=== PATIENT | male | born 1970 | race Caucasian/White ===

== ENCOUNTER 2017-01-14 13:25 | Emergency (ER) | payer MEDICAID ==
[2017-01-14 13:32] VITALS: RESP 16; TEMP 97.9; O2SAT 98
--- NOTE | 2017-01-14 13:32 | EDPHY ---
H & P HPI/ROS: CHIEF COMPLAINT: Difficulty sleeping, rectal pain. HISTORY OF PRESENT ILLNESS: The patient is a 47-year-old male who presents for difficulty sleeping and rectal pain. He has reports barely sleeping for the past 2-3 nights because of rectal pain. Hewoke up with anal pain Tuesday that has been constant since then. He has no prior history of hemorrhoids but believes that he has one now. No rectal bleeding, straining at stool, rectal intercourse. He has been using marijuana to try and help him sleep. He has not taken anything for the pain. His last BM was a couple of days ago. No diarrhea. No fever. He denies abdominal pain. REVIEW OF SYSTEMS: A ten point review of systems was performed and is negative with the exception of the items mentioned in the HPI. Source: Patient Exam Limitations: No limitations - Medical/Surgical History Hx Asthma: No Hx Chronic Respiratory Disease: Yes Hx Diabetes: No Hx Cardiac Disease: No Hx Renal Disease: No Hx Cirrhosis: No Hx Alcoholism: No Hx HIV/AIDS: No Hx Splenectomy or Spleen Trauma: No Other PMH: 1. Hernia repair. 2. PTSD - Social History Smoking Status: Current every day smoker Additional Social History: Smokes one pack of cigarettes per day, uses marijuana daily, drinks 1-2 six- packs of beer per week. - Physical Exam Exam: General Appearance: Alert. Vital signs reviewed. Eyes: Pupils equal and round, no conjunctival injection, no discharge. Anicteric. ENT, Mouth: Mucous membranes are moist, no oropharyngeal erythema or edema. Respiratory: Lungs are clear to auscultation; no wheezes, rales, or rhonchi. Coarse breath sounds on the right. Cardiovascular: Regular rate and rhythm; no murmur, rub, or gallop. Gastrointestinal: Abdomen is soft and nontender, no masses or organomegaly, bowel sounds normal. Rectal: External hemorrhoid the size of a small grape. No fissure. Likely thrombosed. Skin: Warm and dry, no rashes on exposed skin, normal color. Neurological: Alert and oriented. Moving all four extremities easily and equally. Psychiatric: Normal affect. Constitutional: Initial Vital Signs Temperature (C) 36.6 C 01/14/17 13:31 Heart Rate 75 01/14/17 13:31 Respiratory Rate 16 01/14/17 13:31 Blood Pressure 125/81 H 01/14/17 13:31 O2 Sat (%) 98 01/14/17 13:31 O2 Delivery Mode Room Air Allergies/Adverse Reactions: ibuprofen Allergy (Verified 01/14/17 13:30) Home Medications: Medication Instructions Recorded Marijuana 02/15/16 Medical Decision Making ED Course/Re-evaluation: 47-year-old male presents with rectal pain for the last two days. The pain is constant and has been keeping him awake at night. On exam he has an external thrombosed hemorrhoid. I offered to perform excision of the hemorrhoid but he declined and would like to try home and [id number] remedies first. I have instructed him to use a hemorrhoid cream with a steroid, tucks pads, stool softeners, fluids, and Sitz baths. He understands to return if he is not improving. Differential Diagnosis: Differential diagnoses that I considered include but are not limited to external hemorrhoid (thrombosed or not), strangulated hemorrhoid, hemorrhoidal bleeding, anal fissure, cryptitis, anorectal abscess, pinonidal sinus, rectal prolapse, and malignancy. Based on history and physical this patient's pain is due to thrombosed external hemorrhoid. Departure - Departure Disposition: Home, Routine, Self-Care Clinical Impression: Hemorrhoid Qualifiers: Hemorrhoid type: unspecified Qualified Code(s): K64.9 - Unspecified hemorrhoids Condition: Good Instructions: Hemorrhoids (ED) Additional Instructions: Try these solutions for your hemorrhoid: [id number] stool softener. Avoid constipation. Hemorrhoid cream with a steroid (hydrocortisone). Tucks pads. You can buy this [id number]. Soaking in a bathtub, Sitz baths. Drink lots of fluids. Try Benadryl and Melatonin to help you sleep. Return in 48 hours if not improved. You can return at any time if you find that your 2 uncomfortable. Referrals: [facility] [Outside] - As per Instructions Report Scribed for: Nathalia Pena Report Scribed by: Rudy Crane Date of Report: 01/14/17 Time of Report: 13:33 Physician Review and Approval Statement: 01/14/17 13:32 Portions of this note were transcribed by the medical library assistant. I, Dr. Nathalia Pena, personally performed the history, physical exam, and medical decision- making; and confirmed the accuracy of the information in the transcribed note.
[2017-01-14 14:42] VITALS: BP 125/84; PULSE 66
== END 2017-01-14 14:30 | disposition home or self-care (01) ==
LOC: CED 13:25
DX: K64.9 Unspecified hemorrhoids (principal); F17.210 Nicotine dependence, cigarettes, uncomplicated

== ENCOUNTER 2017-09-06 06:41 | Emergency (ER) | payer MEDICAID ==
[2017-09-06 06:55] VITALS: TEMP 98.2
--- NOTE | 2017-09-06 06:58 | CPEKG ---
Heart Rate: 81 RR Interval: 741 P-R Interval: 164 QRSD Interval: 84 QT Interval: 328 QTC Interval: 381 P [place]: 64 QRS [place]: 120 T Wave [place]: 73 EKG Severity - OTHERWISE NORMAL ECG - EKG Impression: SINUS RHYTHM EKG Impression: S1,S2,S3 PATTERN Electronically Signed By: Richard Encarnacion 06-Sep-2017 14:11:04
--- NOTE | 2017-09-06 07:03 | EDPHY ---
H & P Stated Complaint: COUGH AND ASSOCIATED C/O Time Seen by Provider: 09/06/17 06:57 HPI/ROS: Chief Complaint: Cough, back pain HPI: 47-year-old male presenting with 3 days of dry nonproductive cough, pain when he coughs in his back. Some intermittent sweats and chills. Cough is nonproductive. He has been using an albuterol inhaler that he has gotten from prior ER visits. No nausea or vomiting. No central chest pain. No pain with inspiration. He has not taken any Tylenol or Motrin. No abdominal pain. No fainting. My ROS PMH: H pylori, hernia repair, bronchitis Social History: Positive smoking, denies alcohol, daily marijuana Family History: No family history of coronary artery disease Physical Exam: Gen: Awake, Alert, No Distress HEENT: Nose: no rhinorrhea Eyes: PERRLA, EOMI Mouth: Moist mucosa Neck: Supple, no JVD Chest: nontender, diffuse expiratory wheezing, no focal rales or rhonchi Heart: S1, S2 normal, no murmur Abd: Soft, non-tender, no guarding Back: no CVA tenderness, no midline tenderness Ext: no edema, non-tender Skin: no rash Neuro: CN II-XII intact, Sensation grossly intact, Strength 5/5 in bilateral upper and lower extremities - Personal History Current Tetanus/Diphtheria Vaccine: Unsure - Medical/Surgical History Hx Asthma: No Hx Chronic Respiratory Disease: No Hx Diabetes: No Hx Cardiac Disease: No Hx Renal Disease: No Hx Cirrhosis: No Hx Alcoholism: No Hx HIV/AIDS: No Hx Splenectomy or Spleen Trauma: No Other PMH: 1. Hernia repair. 2. PTSD. PMH: DENIES - Social History Smoking Status: Current every day smoker Constitutional: Initial Vital Signs Temperature (C) 36.8 C 09/06/17 06:45 Heart Rate 100 09/06/17 06:45 Respiratory Rate 16 09/06/17 06:45 Blood Pressure 155/102 H 09/06/17 06:45 O2 Sat (%) 95 09/06/17 06:45 O2 Delivery Mode Room Air Allergies/Adverse Reactions: acetaminophen [From Tylenol] Allergy (Verified 09/06/17 06:51) ibuprofen Allergy (Verified 09/06/17 06:50) Home Medications: Medication Instructions Recorded Marijuana 02/15/16 AZITHROMYCIN [Z-PACK] 250 mg PO DAILY #6 tab 09/06/17 predniSONE 60 mg PO DAILY #12 tab 09/06/17 Medical Decision Making - Diagnostics EKG Interpretation: ECG time 6:56 a.m., sinus rhythm with a rate of 81, normal axis, normal intervals, no acute ST or T-wave changes. - Data Points Medications Given: Discontinued Medications Albuterol/Ipratropium (Duoneb) 3 ml IH EDNOW ONE Stop: 09/06/17 07:12 Last Admin: 09/06/17 07:20 Dose: 3 ml Prednisone (Prednisone) 60 mg PO EDNOW ONE Stop: 09/06/17 07:14 Last Admin: 09/06/17 07:18 Dose: 60 mg Departure - Departure Disposition: Home, Routine, Self-Care Clinical Impression: Acute bronchitis Condition: Good Instructions: Acute Bronchitis (ED), Wheezing (ED) Additional Instructions: You may take Tylenol 1000 mg every 6 hr as needed for fevers, chills, or pain. You may use your albuterol inhaler with a spacer 2 puffs every 4 hr as needed for cough or wheeze. Take your full course of antibiotics. Take your full course of prednisone. Follow up with primary care doctor in 3-4 days for further evaluation. Return to the emergency depart for increasing shortness of breath, uncontrolled fevers or chills, nausea, vomiting, or any other concerns. Referrals: [facility] [Outside] - As per Instructions Prescriptions: AZITHROMYCIN [Z-PACK] 250 mg PO DAILY #6 tab predniSONE 60 mg PO DAILY #12 tab
[2017-09-06] MEDS ORDERED: IPRATROPIUM/ALBUTEROL 3 ML DEYVIAL IH ONE (07:11)
[2017-09-06] MEDS ORDERED: predniSONE 20 MG TAB PO ONE (07:13)
[2017-09-06] MEDS ORDERED: ACETAMINOPHEN 500 MG TAB PO ONE (08:11)
[2017-09-06] MEDS ORDERED: ONDANSETRON DISINTEGRATING 4 MG TAB PO ONE (08:15)
[2017-09-06 08:20] VITALS: BP 137/91; PULSE 84; RESP 20
[2017-09-06 08:38] VITALS: O2SAT 95
== END 2017-09-06 08:35 | disposition home or self-care (01) ==
LOC: CED 06:41
DX: J20.9 Acute bronchitis, unspecified (principal); F17.200 Nicotine dependence, unspecified, uncomplicated
CPT/HCPCS: 71020-PO

== ENCOUNTER 2019-03-19 18:10 | Emergency (ER) | payer MEDICAID | END 2019-03-19 20:16 | disposition home or self-care (01) | LOC: CED 18:10 ==